=== PATIENT | male | born 1970 | race Caucasian/White ===

== ENCOUNTER 2017-05-13 14:35 | Emergency (ER) | payer MEDICAID, SELFPAY ==
[~2017-05-13] VITALS: Ht 170.2 cm; Wt 81.8 kg
[2017-05-13 16:19] VITALS: BP 135/83
== END 2017-05-13 16:40 | disposition home or self-care (01) ==
LOC: EMS 14:36
DX: L01.00 Impetigo, unspecified (principal); L98.9 Disorder of the skin and subcutaneous tissue, unspecified; F17.210 Nicotine dependence, cigarettes, uncomplicated
CPT/HCPCS: 99283

== ENCOUNTER 2017-06-27 20:22 | Emergency (ER) | payer MEDICAID ==
[~2017-06-27] VITALS: Ht 170.2 cm; Wt 72.0 kg
[2017-06-27] MEDS ORDERED: ACETAMINOPHEN 325 MG TABLET PO ONE (21:15)
[2017-06-27] MEDS ORDERED: KETOROLAC TROMETHAMINE 60 MG/2 ML VIAL IM ONE (21:30)
[2017-06-27 21:43] LABS: INFLUENZA TYPE A NEGATIVE FOR TYPE A (NEGATIVE); INFLUENZA TYPE B POSITIVE FOR TYPE B (NEGATIVE)
[2017-06-27] MEDS ORDERED: OSELTAMIVIR PHOSPHATE 75 MG CAPSULE PO ONE (22:30)
[2017-06-27 22:40] VITALS: BP 110/76
== END 2017-06-27 22:44 | disposition home or self-care (01) ==
LOC: EMS 20:26
DX: J11.1 Influenza due to unidentified influenza virus with other respiratory manifestations (principal); J45.909 Unspecified asthma, uncomplicated; R51 Headache; F17.210 Nicotine dependence, cigarettes, uncomplicated
CPT/HCPCS: 71046; 87804; 96372; 99285; 99406; J1885

== ENCOUNTER 2018-03-11 11:08 | Emergency (ER) | payer MEDICAID ==
[~2018-03-11] VITALS: Ht 170.2 cm; Wt 86.4 kg
[2018-03-11] MEDS ORDERED: METHOCARBAMOL 500 MG TABLET PO ONE (12:00)
[2018-03-11] MEDS ORDERED: KETOROLAC TROMETHAMINE 60 MG/2 ML VIAL IM ONE (12:00)
[2018-03-11 13:00] VITALS: BP 123/73
== END 2018-03-11 14:13 | disposition home or self-care (01) ==
LOC: EMS 11:09
DX: S46.911A Strain of unspecified muscle, fascia and tendon at shoulder and upper arm level, right arm, initial encounter (principal); S39.012A Strain of muscle, fascia and tendon of lower back, initial encounter; M19.90 Unspecified osteoarthritis, unspecified site; F17.210 Nicotine dependence, cigarettes, uncomplicated; X58.XXXA Exposure to other specified factors, initial encounter; Y93.89 Activity, other specified; Y92.89 Other specified places as the place of occurrence of the external cause; Y99.8 Other external cause status
CPT/HCPCS: 96372; 99283; J1885

== ENCOUNTER 2020-12-21 21:45 | Emergency (ER) | payer MEDICAID ==
[~2020-12-21] VITALS: Ht 167.6 cm; Wt 77.3 kg
[2020-12-21] MEDS ORDERED: ACETAMINOPHEN 500 MG TABLET PO ONE (23:30)
[2020-12-21] MEDS ORDERED: ONDANSETRON HCL 4 MG TABLET PO ONE (23:30)
[2020-12-21] MEDS ORDERED: KETOROLAC TROMETHAMINE 30 MG/ML VIAL IM ONE (23:30)
[2020-12-22 01:06] VITALS: BP 120/84
== END 2020-12-22 01:15 | disposition home or self-care (01) ==
LOC: EMS 21:45
DX: S06.0X1A Concussion with loss of consciousness of 30 minutes or less, initial encounter (principal); S00.81XA Abrasion of other part of head, initial encounter; F15.90 Other stimulant use, unspecified, uncomplicated; F17.210 Nicotine dependence, cigarettes, uncomplicated; W20.8XXA Other cause of strike by thrown, projected or falling object, initial encounter; Y93.89 Activity, other specified; Y92.89 Other specified places as the place of occurrence of the external cause; Y99.8 Other external cause status
CPT/HCPCS: 70450; 70490; 71046; 96372; 99285; J1885; Q0162

== ENCOUNTER 2022-05-14 20:12 | Emergency (ER) | payer SELFPAY ==
[~2022-05-14] VITALS: Ht 170.2 cm; Wt 75.0 kg
[2022-05-14 20:48] VITALS: BP 104/63
== END 2022-05-15 01:40 | disposition left against medical advice (07) ==
LOC: EMS 20:13
DX: M54.50 Low back pain, unspecified (principal); Z53.21 Procedure and treatment not carried out due to patient leaving prior to being seen by health care provider

== ENCOUNTER 2022-07-17 00:32 | Emergency (ER) | payer SELFPAY ==
[~2022-07-17] VITALS: Ht 170.2 cm; Wt 81.8 kg
[2022-07-17] MEDS ORDERED: KETOROLAC TROMETHAMINE 30 MG/ML VIAL IVP ONE (01:00)
[2022-07-17] MEDS ORDERED: SODIUM CHLORIDE 0.9% 1,000 ML IV ONE (01:00)
[2022-07-17] MEDS ORDERED: HYDROmorphone HCL 2 MG/ML SYRINGE IM ONE (01:00)
[2022-07-17 01:10] LABS: BASOPHILS % (AUTO) 1.4 % (0.0-2.0); EOSINOPHILS % (AUTO) 2.4 % (1.0-6.0); HEMATOCRIT 39.6 % (41-53); HEMOGLOBIN 13.1 g/dL (13.5-17.5); LYMPHOCYTES % (AUTO) 16.9 % (22.0-44.0); MEAN CORPUSCULAR HEMOGLOBIN 30.8 pg (26.0-34.0); MEAN CORPUSCULAR HGB CONC 33.2 G/dL (31.0-37.0); MEAN CORPUSCULAR VOLUME 93 fL (80-100); MONOCYTES # (AUTO) 0.9 K/uL (0.1-1.0); MONOCYTES % (AUTO) 7.6 % (2.0-9.0); NEUTROPHILS # (AUTO) 8.4 K/uL (1.8-7.7); NEUTROPHILS % (AUTO) 71.7 % (40.0-70.0); PLATELET COUNT (AUTO) 267 K/uL (150-450); RED BLOOD CELL COUNT(AUTO) 4.27 MIL/uL (4.50-5.90); RED CELL DISTRIBUTION WIDTH 13.4 % (11.5-14.5)
[2022-07-17 01:18] VITALS: BP 118/61
[2022-07-17 01:23] LABS: ANION GAP 8 mmol/L (8-16); CALCIUM, TOTAL 9.1 mg/dL (8.8-10.5); CARBON DIOXIDE 28 mmol/L (22-29); CHLORIDE 105 mmol/L (98-107); CREATININE 1.11 mg/dL (0.60-1.30); GLOMERULAR FILTR. RATE CALC > 60 mL/min (>60); GLUCOSE,RANDOM 108 mg/dL (70-110); POTASSIUM 5.2 mmol/L (3.5-5.1); SODIUM SERUM 141 mmol/L (136-145); UREA NITROGEN, BLOOD 18 mg/dL (7-18)
[2022-07-17 01:30] LABS: ALANINE AMINOTRANSFERASE 45 U/L (12-78); ALBUMIN 3.8 g/dL (3.4-5.0); ALKALINE PHOSPHATASE 94 U/L (46-116); ASPARTATE AMINOTRANSFERASE 24 U/L (15-37); BILIRUBIN,TOTAL 0.2 mg/dL (0.1-1.0); LIPASE 75 U/L (73-393)
[2022-07-17] MEDS ORDERED: IOHEXOL 350 MG/ML 100 ML VIAL ONE (01:42)
[2022-07-17] MEDS ORDERED: SODIUM CHLORIDE 0.9% 100 ML ONE (01:42)
[2022-07-17] MEDS ORDERED: HYDROmorphone HCL 2 MG/ML SYRINGE IVP ONE (01:45)
[2022-07-17 03:27] LABS: APPEARANCE,URINE CLEAR (CLEAR); BILIRUBIN,URINE NEGATIVE (NEGATIVE); GLUCOSE, URINE (UA) NEGATIVE (NEGATIVE); KETONES,URINE NEGATIVE (NEGATIVE); LEUKOCYTE ESTERASE ,URINE NEGATIVE (NEGATIVE); NITRATE,URINE NEGATIVE (NEGATIVE); OCCULT BLOOD,URINE LARGE (NEGATIVE); PH,URINE 6.5 (5.0-8.0); PROTEIN,URINE NEGATIVE (NEGATIVE); SPECIFIC GRAVITIY, URINE 1.025 (1.003-1.030); UROBILINOGEN,URINE <=1.0 mg/dL (<=1.0)
[2022-07-17 03:36] LABS: BACTERIA,URINE None Seen /HPF (None Seen); SQUAMOUS EPITHELIAL CELL,UR None Seen /LPF (None Seen); WBC,URINE None Seen /HPF (0-5)
[2022-07-17] MEDS ORDERED: IBUP-1492 PO (17:18)
== END 2022-07-17 04:00 | disposition home or self-care (01) ==
LOC: EMS 00:33
DX: R10.31 Right lower quadrant pain (principal); M19.90 Unspecified osteoarthritis, unspecified site; M54.30 Sciatica, unspecified side; F17.210 Nicotine dependence, cigarettes, uncomplicated; F15.90 Other stimulant use, unspecified, uncomplicated
CPT/HCPCS: 99285; 74177; 96374; 96361; 96375; 80053; 81001; 83690; 84484; 85025; 36415; 93005; J1170; J1885; Q9967; J7030; J7050

== ENCOUNTER 2022-07-17 15:11 | Emergency (ER) | payer SELFPAY ==
[~2022-07-17] VITALS: Ht 167.6 cm; Wt 81.8 kg
[2022-07-17] MEDS ORDERED: KETOROLAC TROMETHAMINE 30 MG/ML VIAL IVP ONE (15:30)
[2022-07-17] MEDS ORDERED: SODIUM CHLORIDE 0.9% 1,000 ML IV ONE (15:30)
[2022-07-17] MEDS ORDERED: TAMSULOSIN HCL 0.4 MG CAPSULE PO ONE (15:30)
[2022-07-17] MEDS ORDERED: IBUP-1492 PO (17:18)
[2022-07-17 18:00] VITALS: BP 158/94
== END 2022-07-17 18:21 | disposition home or self-care (01) ==
LOC: EMS 15:14
DX: N20.0 Calculus of kidney (principal); M19.90 Unspecified osteoarthritis, unspecified site; M54.30 Sciatica, unspecified side; F17.210 Nicotine dependence, cigarettes, uncomplicated; F15.90 Other stimulant use, unspecified, uncomplicated
CPT/HCPCS: 99283; 96374; 96361; J1885; J7030

== ENCOUNTER 2023-09-12 00:31 | Emergency (ER) | payer SELFPAY ==
[~2023-09-12] VITALS: Ht 170.2 cm; Wt 84.0 kg
[~2023-09-12 00:31] MED LIST: IBUP-1492 PO
[2023-09-12 00:34] VITALS: BP 156/107; PULSE 102; RESP 20; TEMP 98.1
[2023-09-12] MEDS ORDERED: OXYC-490 PO (00:48)
[2023-09-12] MEDS: KETOROLAC TROMETHAMINE 30 MG/ML VIAL IM ONE (01:03)
[2023-09-12] MEDS: OxyCODONE HCL/ACETAMINOPHEN 10-325 MG TABLET PO ONE (01:04)
== END 2023-09-12 01:21 | disposition home or self-care (01) ==
LOC: EMS 00:34
DX: K08.89 Other specified disorders of teeth and supporting structures (principal); M19.90 Unspecified osteoarthritis, unspecified site; F17.210 Nicotine dependence, cigarettes, uncomplicated; F15.90 Other stimulant use, unspecified, uncomplicated
CPT/HCPCS: 99283; 96372; J1885

== ENCOUNTER 2023-11-24 18:57 | Emergency (ER) | payer MEDICAID ==
[~2023-11-24] VITALS: Ht 167.6 cm; Wt 75.0 kg
[~2023-11-24 18:57] MED LIST changes: +OXYC-490 PO
[2023-11-24 19:25] VITALS: BP 133/85; PULSE 113; RESP 22; TEMP 98
[2023-11-24] MEDS: HYDROCODONE/ACETAMINOPHEN 5-325 MG TABLET PO ONE (21:10)
[2023-11-24] MEDS: METHOCARBAMOL 500 MG TABLET PO ONE (21:10)
[2023-11-24] MEDS: KETOROLAC TROMETHAMINE 60 MG/2 ML VIAL IM ONE (21:10)
[2023-11-24] MEDS ORDERED: LIDO700A15 TP (23:55)
== END 2023-11-25 00:10 | disposition home or self-care (01) ==
LOC: EMS 19:20
DX: M54.50 Low back pain, unspecified (principal); M19.90 Unspecified osteoarthritis, unspecified site; F17.210 Nicotine dependence, cigarettes, uncomplicated; F15.90 Other stimulant use, unspecified, uncomplicated; V49.88XA Car occupant (driver) (passenger) injured in other specified transport accidents, initial encounter; Y93.89 Activity, other specified; Y92.89 Other specified places as the place of occurrence of the external cause; Y99.8 Other external cause status
CPT/HCPCS: 99284; 71111; 72040; 72070; 72100; 73503; 96372; J1885

== ENCOUNTER 2024-11-24 05:47 | Emergency (ER) | payer MEDICAID ==
[~2024-11-24] VITALS: Ht 167.6 cm; Wt 75.0 kg
[~2024-11-24 05:47] MED LIST changes: +LIDO-57 TP
[2024-11-24 05:54] VITALS: TEMP 97.7
[2024-11-24 07:55] LABS: BASOPHILS % (AUTO) 1.1 % (0.0-2.0); EOSINOPHILS % (AUTO) 4.6 % (1.0-6.0); HEMATOCRIT 41.9 % (41-53); HEMOGLOBIN 14.3 g/dL (13.5-17.5); LYMPHOCYTES # (AUTO) 1.5 K/uL (1.0-4.8); LYMPHOCYTES % (AUTO) 17.4 % (22.0-44.0); MEAN CORPUSCULAR HEMOGLOBIN 31.5 pg (26.0-34.0); MEAN CORPUSCULAR HGB CONC 34.2 G/dL (31.0-37.0); MEAN CORPUSCULAR VOLUME 92 fL (80-100); MONOCYTES # (AUTO) 0.8 K/uL (0.1-1.0); MONOCYTES % (AUTO) 8.5 % (2.0-9.0); NEUTROPHILS # (AUTO) 6.1 K/uL (1.8-7.7); NEUTROPHILS % (AUTO) 68.4 % (40.0-70.0); PLATELET COUNT (AUTO) 280 K/uL (150-450); RED BLOOD CELL COUNT(AUTO) 4.55 MIL/uL (4.50-5.90); RED CELL DISTRIBUTION WIDTH 13.8 % (11.5-14.5); WHITE BLOOD COUNT (AUTO) 8.9 K/uL (4.5-11.0)
[2024-11-24 08:02] LABS: ANION GAP 5 mmol/L (8-16); CALCIUM, TOTAL 9.1 mg/dL (8.8-10.5); CARBON DIOXIDE 28 mmol/L (22-29); CHLORIDE 105 mmol/L (98-107); GLOMERULAR FILTR. RATE CALC > 60 mL/min (>60); GLUCOSE,RANDOM 98 mg/dL (70-110); POTASSIUM 4.5 mmol/L (3.5-5.1); SODIUM SERUM 138 mmol/L (136-145); UREA NITROGEN, BLOOD 27 mg/dL (7-18)
[2024-11-24 09:14] LABS: APPEARANCE,URINE CLEAR (CLEAR); BILIRUBIN,URINE NEGATIVE (NEGATIVE); COLOR,URINE YELLOW (YELLOW); GLUCOSE, URINE (UA) NEGATIVE (NEGATIVE); KETONES,URINE NEGATIVE (NEGATIVE); LEUKOCYTE ESTERASE ,URINE NEGATIVE (NEGATIVE); NITRATE,URINE NEGATIVE (NEGATIVE); OCCULT BLOOD,URINE NEGATIVE (NEGATIVE); PH,URINE 5.5 (5.0-8.0); PROTEIN,URINE NEGATIVE (NEGATIVE); SPECIFIC GRAVITIY, URINE 1.034 (1.003-1.030)
[2024-11-24] MEDS ORDERED: TRAM50TA5 PO (09:37)
[2024-11-24 09:56] VITALS: BP 128/63; PULSE 68; RESP 18; O2SAT 100
== END 2024-11-24 10:44 | disposition home or self-care (01) ==
LOC: EMS 05:50
DX: K40.20 Bilateral inguinal hernia, without obstruction or gangrene, not specified as recurrent (principal); R10.9 Unspecified abdominal pain; M19.90 Unspecified osteoarthritis, unspecified site; F17.210 Nicotine dependence, cigarettes, uncomplicated; F15.90 Other stimulant use, unspecified, uncomplicated; Z91.030 Bee allergy status; Z79.899 Other long term (current) drug therapy
CPT/HCPCS: 74176; 80048; 81003; 83690; 85025; 93005; 99284

== ENCOUNTER 2025-05-26 03:06 | Emergency (ER) | payer SELFPAY ==
[~2025-05-26] VITALS: Ht 170.2 cm; Wt 81.8 kg
[~2025-05-26 03:06] MED LIST changes: +TRAM50TA5 PO
[2025-05-26 03:07] VITALS: BP 105/68; PULSE 102; RESP 18; TEMP 98.1; O2SAT 100
[2025-05-26 03:59] LABS: INFLUENZA TYPE A NEGATIVE FOR TYPE A (NEGATIVE); INFLUENZA TYPE B NEGATIVE FOR TYPE B (NEGATIVE)
[2025-05-26] MEDS: ACETAMINOPHEN 500 MG TABLET PO ONE (04:06)
[2025-05-26 04:13] LABS: RAPID GROUP A STREP PRELIM. NEGATIVE (NEGATIVE)
[2025-05-26] MEDS ORDERED: AZIT-167 PO (04:22)
[2025-05-26] MEDS ORDERED: PSEU120T61 PO (04:22)
[2025-05-26] MEDS ORDERED: BENZ-227 PO (04:26)
[2025-05-26] MEDS: ONDANSETRON 4 MG TABLET PO ONE (04:39)
== END 2025-05-26 04:53 | disposition home or self-care (01) ==
LOC: EMS 03:06
DX: J02.9 Acute pharyngitis, unspecified (principal); J18.9 Pneumonia, unspecified organism; M19.90 Unspecified osteoarthritis, unspecified site; F17.210 Nicotine dependence, cigarettes, uncomplicated; F15.90 Other stimulant use, unspecified, uncomplicated; Z79.899 Other long term (current) drug therapy; Z91.030 Bee allergy status; Z20.822 Contact with and (suspected) exposure to COVID-19
CPT/HCPCS: 99284; 71045; 87081; 87430; 87804; Q0162